=== PATIENT | female | born 1955 | race Caucasian/White ===

== ENCOUNTER 2022-02-20 08:35 | Day surgery (SDC) | payer BC ==
[2022-02-15 13:53] VITALS: BMI 41.5
[2022-02-20] MEDS ORDERED: CEFAZOLIN 2 GM in DEXTROSE 5%-WATER - 50 ML IVPB ONE (08:54)
[2022-02-20] MEDS ORDERED: CELECOXIB 200 MG CAPSULE PO ONE (08:54)
[2022-02-20] MEDS ORDERED: TRANEXAMIC ACID 1000 MG/10 ML VIAL IVPUSH ONE (08:54)
[2022-02-20 09:10] VITALS: BP 142/85; PULSE 87; RESP 18; TEMP 97.1
[2022-02-20] MEDS ORDERED: VANCOMYCIN 1,000 MG VIAL (RESTRICTED TO ID ONLY) ONE (09:40)
[2022-02-20] MEDS ORDERED: ceFAZolin SODIUM 1 GM VIAL ONE (09:40)
== END 2022-02-20 11:00 | disposition home or self-care (01) ==
LOC: FASUSAT 08:35
PROVIDERS: ATTEND Orthopaedic Surgery
PROC: 0SRB0J9 Replacement of Left Hip Joint with Synthetic Substitute, Cemented, Open Approach (ICD-10-PCS; principal; 2022-02-20)
DX: Z53.8 Procedure and treatment not carried out for other reasons (principal); M16.12 Unilateral primary osteoarthritis, left hip

== ENCOUNTER 2022-02-21 08:55 | Day surgery (SDC) | payer BC, OTHER ==
[2022-02-21 07:36] VITALS: BMI 41.5
[2022-02-21] MEDS ORDERED: ceFAZolin SODIUM 1 GM VIAL ONE (09:45)
[2022-02-21] MEDS ORDERED: VANCOMYCIN 1,000 MG VIAL (RESTRICTED TO ID ONLY) ONE (09:45)
[2022-02-21] MEDS ORDERED: CELECOXIB 200 MG CAPSULE ONE (10:39)
[2022-02-21] MEDS ORDERED: MAG HYDROX/AL HYDROX/SIMETH 30 ML UNIT-DOSE CUP PO PRN (11:50)
[2022-02-21] MEDS ORDERED: CEFAZOLIN 2 GM in DEXTROSE 5%-WATER - 50 ML IVPB ONE (11:50)
[2022-02-21] MEDS ORDERED: TRANEXAMIC ACID 1000 MG/10 ML VIAL IVPUSH ONE (11:50)
[2022-02-21] MEDS ORDERED: ALBUTEROL SO4 HFA INHALER IH PRN (11:51)
[2022-02-21] MEDS ORDERED: MIDAZOLAM HCL 2 MG/2 ML SINGLE DOSE VIAL ONE (12:08)
[2022-02-21] MEDS ORDERED: FENTANYL CITRATE/PF 50 MCG/ML VIAL ONE (12:08)
[2022-02-21] MEDS ORDERED: ROPIVACAINE HCL/PF 100 MG/20 ML VIAL ONE (12:09)
[2022-02-21] MEDS ORDERED: BUPIVACAINE HCL/PF 0.5% (5MG/ML) 10 ML VIAL ONE (12:09)
[2022-02-21] MEDS ORDERED: ONDANSETRON 4 MG/2 ML VIAL IVPUSH PRN (14:51)
[2022-02-21] MEDS ORDERED: ACETAMINOPHEN 500 MG TABLET (FP) ONE (15:06)
[2022-02-21] MEDS: ACETAMINOPHEN 500 MG TABLET (FP) PO SCH ×2 (15:17→21:26)
[2022-02-21] MEDS: LACTATED RINGERS SOLUTION 1,000 ML IV SCH ×2 (16:17→22:16)
[2022-02-21] MEDS: ONDANSETRON 4 MG/2 ML VIAL IVPUSH PRN (17:40)
[2022-02-21] MEDS: oxyCODONE HCL 5 MG TABLET PO PRN ×2 (17:40→21:29)
[2022-02-21] MEDS: SENNOSIDES/DOCUSATE COMBO (SENNA PLUS) TABLET (UD) PO SCH (21:26)
[2022-02-21] MEDS: BUDESONIDE/FORMETEROL FUMARATE 80/4.5 mcg INHALER IH SCH (21:30)
[2022-02-21] MEDS: CEFAZOLIN SODIUM 2 GM in DEXTROSE 5%-WATER 100 ML IVPB SCH (21:40)
[2022-02-22 00:28] VITALS: RESP 18
[2022-02-22] MEDS: ACETAMINOPHEN 500 MG TABLET (FP) PO SCH ×2 (05:06→08:49)
[2022-02-22] MEDS: oxyCODONE HCL 5 MG TABLET PO PRN ×3 (05:06→12:58)
[2022-02-22] MEDS: ONDANSETRON 4 MG/2 ML VIAL IVPUSH PRN ×2 (06:08→12:34)
[2022-02-22] MEDS: CEFAZOLIN SODIUM 2 GM in DEXTROSE 5%-WATER 100 ML IVPB SCH ×2 (06:08→12:31)
[2022-02-22] MEDS ORDERED: LEVOTHYROXINE NA 88 MCG TABLET (FP) PO SCH (07:00)
[2022-02-22] MEDS ORDERED: ASPIRIN 325 MG TABLET PO SCH (08:00)
[2022-02-22 08:04] LABS: HEMATOCRIT 32.8 % (32.4-45.2); HEMOGLOBIN 11.1 G/dL (10.7-15.3); MCH 29.8 pg (25.7-33.7); MEAN CELL VOLUME 87.7 fl (80-96); MEAN PLT VOLUME 8.8 fl (7.5-11.1); PLATELET COUNT 229.4 10^3/uL (134-434); RBC 3.74 10^6/uL (3.60-5.2); RDW 14.4 % (11.6-15.6); WHITE BLOOD COUNT 11.7 10^3/uL (4.0-10.8)
[2022-02-22] MEDS: SENNOSIDES/DOCUSATE COMBO (SENNA PLUS) TABLET (UD) PO SCH (09:26)
[2022-02-22] MEDS: BUDESONIDE/FORMETEROL FUMARATE 80/4.5 mcg INHALER IH SCH (09:36)
[2022-02-22] MEDS ORDERED: FLUTICASONE PROP 0.05% 16 GM NASAL SPRAY NS SCH (10:00)
[2022-02-22] MEDS ORDERED: LOSARTAN POTASSIUM 50 MG TABLET PO SCH (10:00)
[2022-02-22] MEDS ORDERED: PATIENT'S OWN MEDICATION (NON-FORMULARY) (Mometasone Furoate [Mometasone Furoate] 17 GM Sp NS SCH (10:00)
[2022-02-22] MEDS ORDERED: MULTIVITAMINS (DAILY MVI) TABLET (FP) PO SCH (10:00)
[2022-02-22] MEDS ORDERED: PANTOPRAZOLE 40 MG TABLET PO SCH (10:00)
[2022-02-22 14:15] VITALS: BP 129/56; PULSE 89; TEMP 98.4
== END 2022-02-22 15:29 | disposition home health service (06) ==
LOC: FASUSAT 08:55 → FM/S 15:37 → FASUSAT 02-22 15:29
PROVIDERS: ATTEND Orthopaedic Surgery
PROC: 8E0YXBZ Computer Assisted Procedure of Lower Extremity (ICD-10-PCS; 2022-02-21)
PROC: 8E0Y0CZ Robotic Assisted Procedure of Lower Extremity, Open Approach (ICD-10-PCS; 2022-02-21)
PROC: 0SRB0JA Replacement of Left Hip Joint with Synthetic Substitute, Uncemented, Open Approach (ICD-10-PCS; principal; 2022-02-21 13:05)
DX: M16.12 Unilateral primary osteoarthritis, left hip (principal)
CPT/HCPCS: 20985; 27130; C1776; S2900; 36415; 73502-TC-LT-FY; 85027; 88305-TC; 88311-TC; 94760; 97010-GP; 97116-GP; 97162-GP; C9803-CS; U0003; U0005